=== PATIENT | male | born 1940 | race Caucasian/White ===

== ENCOUNTER 2017-12-12 12:24 | Inpatient (IN) | payer MEDICARE, BC ==
[~2017-12-12] VITALS: Ht 188 cm; Wt 94.3 kg
--- NOTE | 2017-12-12 13:04 | NUR ---
Patient is eating lunch tray with good appetite, pending x-ray & psych crisis adoption social worker's evaluation at this time.
[2017-12-12] MEDS ORDERED: BENA20TA9 PO (13:15)
[2017-12-12] MEDS ORDERED: ACET-73 PO (13:15)
[2017-12-12] MEDS ORDERED: LEVO75TA7 PO (13:15)
[2017-12-12] MEDS ORDERED: CARB-93 PO (13:15)
[2017-12-12] MEDS ORDERED: BUSP5TAB3 PO (13:15)
[2017-12-12] MEDS ORDERED: AMLO5TAB2 PO (13:15)
[2017-12-12] MEDS ORDERED: CHOL200078 PO (13:21)
[2017-12-12] MEDS ORDERED: QUET25TA PO (13:21)
[2017-12-12] MEDS ORDERED: MIRA25TA PO (13:21)
[2017-12-12] MEDS ORDERED: SOLI5TAB2 PO (13:21)
[2017-12-12] MEDS ORDERED: METO25TA6 PO (13:21)
[2017-12-12] MEDS ORDERED: MICONAZOLE 2% TP (13:21)
[2017-12-12] MEDS ORDERED: [UNRECOGNIZED DRUG - CODE] PO (13:21)
--- NOTE | 2017-12-12 13:44 | NUR ---
Patient is medically cleared by Dr Low. No acute change in condition seen- calm, confuse, follows command with simple commands, non-combative at the moment.
[2017-12-12 15:00] VITALS: BP 125/71
[2017-12-12] MEDS ORDERED: MAGNESIUM HYDROXIDE 30 ML LIQUID UDC PO PRN (15:00)
[2017-12-12] MEDS ORDERED: MAG HYDROX/AL HYDROX/SIMETH 30 ML LIQUID UDC PO PRN (15:00)
[2017-12-12] MEDS ORDERED: LORAZEPAM 1 MG TABLET PO PRN (15:00)
--- NOTE | 2017-12-12 15:00 | NUR ---
Arrived to unit at this time via wheelchair and ER nurse, Alert and oriented to self only, unsteady gait noted, no combative actions noted at this time, vitals as follows: 125/71, 98.3 oral temperature, 78 pulse, 18 respirations, 97% oxygen saturation, no complaints of pain, no signs of distress noted, takes and swallows pills whole per orders
[2017-12-12] MEDS: CARBIDOPA/LEVODOPA 10-100MG TABLET PO SCH (17:46)
[2017-12-12] MEDS: OXYBUTYNIN CHLORIDE 5 MG TABLET PO SCH (17:46)
[2017-12-12 20:23] VITALS: BP 92/59
[2017-12-12] MEDS: METOPROLOL TARTRATE 25 MG TABLET PO SCH (20:32)
[2017-12-12] MEDS ORDERED: MICONAZOLE NITRATE CREAM 15 GM TUBE TOP SCH (21:00)
[2017-12-13] MEDS: LEVOTHYROXINE SODIUM 75 MCG TABLET PO SCH (07:18)
--- NOTE | 2017-12-13 07:24 | NUR ---
GPS/NSG PATIENT FIRST OBSERVED ALERT, ORIENTED ONLY TO NAME AT TIMES, POOR APPEARANCE, DISHEVELED UNKEMPT. PATIENT DISPLAYS DISORGANIZED THOUGHT PROCESS UNABLE TO FORMULATE PLAN FOR SELF CARE, UNABLE TO AMBULATE, SEVERE WEAKNESS OBSERVED LOWER EXTREMITIES REQUIRES MAX ASSIST. HS MEDICATION HELD LOW B/P, FLUIDS ENCOURAGED, WILL CONTINUE TO MONITOR, SHOWER GIVEN THIS AM. PATIENT SLEPT A TOTAL OF FOUR HOURS AND FORTY-FIVE MINUTES. LAST OBSERVED AWAKE IN HALLWAY.
[2017-12-13 07:30] VITALS: BP 159/80
[2017-12-13] MEDS: OXYBUTYNIN CHLORIDE 5 MG TABLET PO SCH ×2 (08:25→16:05)
[2017-12-13] MEDS: ACETAMINOPHEN 325 MG TABLET PO PRN ×2 (08:25→16:05)
[2017-12-13] MEDS: CHOLECALCIFEROL 1,000 UNIT TABLET PO SCH (08:25)
[2017-12-13] MEDS: CARBIDOPA/LEVODOPA 10-100MG TABLET PO SCH ×3 (08:26→16:45)
[2017-12-13] MEDS: METOPROLOL TARTRATE 25 MG TABLET PO SCH ×2 (08:26→20:44)
[2017-12-13] MEDS: BENAZEPRIL HCL 10 MG TABLET PO SCH (08:26)
[2017-12-13] MEDS: AMLODIPINE 5 MG TABLET PO SCH (08:27)
[2017-12-13] MEDS ORDERED: Medication Not On Formulary EA (Cholecalciferol (Vitamin D3) (Vitamin D3) 1,000 UNIT) PO SCH (09:00)
[2017-12-13] MEDS ORDERED: SOLIFENACIN SUCCINATE 5 MG TABEC PO SCH (09:00)
[2017-12-13] MEDS ORDERED: BENAZEPRIL HCL 20 MG TABLET PO SCH (09:00)
[2017-12-13 09:04] LABS: BASOPHILS # (AUTO) 0.1 K/uL (0.0-8.0); BASOPHILS % (AUTO) 1.1 % (0.0-2.0); EOSINOPHILS # (AUTO) 0.2 K/uL (0.0-0.7); EOSINOPHILS % (AUTO) 1.6 % (0.0-7.0); HEMATOCRIT 43.8 % (36.7-47.1); HEMOGLOBIN 15.2 g/dL (12.5-16.3); LYMPHOCYTES # (AUTO) 0.9 K/uL (20.0-40.0); LYMPHOCYTES % (AUTO) 8.2 % (20.5-51.5); MEAN CORPUSCULAR HEMOGLOBIN 32.2 uug (23.8-33.4); MEAN CORPUSCULAR HGB CONC 35 g/dL (32.5-36.3); MEAN CORPUSCULAR VOLUME 92.8 fL (73.0-96.2); MONOCYTES # (AUTO) 0.8 K/uL (2.0-10.0); MONOCYTES % (AUTO) 7.4 % (0.0-11.0); NEUTROPHILS # (AUTO) 9.1 K/uL (1.8-8.9); NEUTROPHILS % (AUTO) 81.7 % (38.5-71.5); PLATELET COUNT (AUTO) 227 K/uL (152-348); RED BLOOD CELL COUNT(AUTO) 4.72 MIL/uL (4.06-5.63); WHITE BLOOD COUNT (AUTO) 11.1 K/uL (3.6-10.2)
[2017-12-13 09:20] LABS: CARBON DIOXIDE 26 mmol/L (21-32); CHLORIDE 105 mmol/L (98-107); CHOLESTEROL 163 mg/dL (<200); CREATININE 1.9 mg/dL (0.6-1.3); GLUCOSE 184 mg/dL (74-106); HDL CHOLESTEROL 45 mg/dL (40-60); POTASSIUM 3.2 mmol/L (3.5-5.1); TRIGLYCERIDES 107 MG/DL (30-150); UREA NITROGEN, BLOOD 34 mg/dL (7-18)
[2017-12-13] MEDS: DIVALPROEX 250 MG TABLET.DR PO SCH ×2 (12:34→16:05)
[2017-12-13] MEDS: HALOPERIDOL 1 MG TABLET PO SCH ×2 (12:34→16:05)
[2017-12-13 15:21] VITALS: BP 115/63
--- NOTE | 2017-12-13 16:01 | NUR ---
Firearms Report: LIZETT completed and submitted [employer]arms Report on 12/13/17 for 5150 DTO and GD certification.
[2017-12-13] MEDS: HYDROXYZINE PAMOATE 25 MG CAPSULE PO PRN (16:45)
[2017-12-13 19:30] VITALS: BP 107/64
[2017-12-13] MEDS: RIVASTIGMINE TARTRATE 1.5 MG CAPSULE PO SCH (20:44)
[2017-12-14] MEDS: HYDROXYZINE PAMOATE 25 MG CAPSULE PO PRN ×3 (00:20→20:33)
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
[2017-12-14] MEDS: LEVOTHYROXINE SODIUM 75 MCG TABLET PO SCH (06:47)
[2017-12-14 07:30] VITALS: BP 168/78
[2017-12-14] MEDS: DIVALPROEX 250 MG TABLET.DR PO SCH ×3 (08:15→16:20)
[2017-12-14] MEDS: OXYBUTYNIN CHLORIDE 5 MG TABLET PO SCH ×2 (08:16→16:21)
[2017-12-14] MEDS: ACETAMINOPHEN 325 MG TABLET PO PRN (08:16)
[2017-12-14] MEDS: CHOLECALCIFEROL 1,000 UNIT TABLET PO SCH (08:16)
[2017-12-14] MEDS: HALOPERIDOL 1 MG TABLET PO SCH ×3 (08:16→16:20)
[2017-12-14] MEDS: CARBIDOPA/LEVODOPA 10-100MG TABLET PO SCH ×3 (08:16→16:21)
[2017-12-14] MEDS: RIVASTIGMINE TARTRATE 1.5 MG CAPSULE PO SCH ×2 (08:16→20:30)
[2017-12-14] MEDS: METOPROLOL TARTRATE 25 MG TABLET PO SCH ×2 (08:17→20:31)
[2017-12-14] MEDS: AMLODIPINE 5 MG TABLET PO SCH (08:17)
[2017-12-14] MEDS: BENAZEPRIL HCL 10 MG TABLET PO SCH (08:21)
--- NOTE | 2017-12-14 11:35 | NUR ---
Initial Discharge Instructions: Patient is currently living in a private B&C [[address], [place] [address]; [phone]]. Spoke with patient's DPOA/Friend, Deepali ([phone]) who reports that the facility will take the patient back if his behaviors can be more manageable. SW will continue to collaborate with pt, family, and MD regarding appropriate discharge plans for this patient. SW will form a safe and proper discharge plan.
[2017-12-14 13:00] VITALS: BP 114/61
--- NOTE | 2017-12-14 13:30 | NUR ---
DR MENDIETA SEEN PATIENT THIS AFTERNOON AND PUT ON 14 DAY HOLD
[2017-12-14 15:04] VITALS: BP 125/61
--- NOTE | 2017-12-14 17:30 | NUR ---
MOST OF THE TIME HE SIT IN ADELE CHAIR AND COOPERATE QUIET NO AGITATION ,NO ACUTE DISTRESS ,PAIN UNDER CONTROL NO S/I SAFETY MEASURE PROVIDED AND CLOSED OBSERVATION SITTER 1:1 AT BEDSIDE
--- NOTE | 2017-12-14 18:55 | NUR ---
GPS: Nursing Notes: Thought Disorder: Patient is awake and responding to name, confused, disoriented, disorganized, impaired judgment, poor insight, gets easily irritable when assisting him with ADL's, fall risk, continue with 1:1 sitter for safety, unable to formulate a plan for self care, resistant with nursing care by pushing staff away, continue with treatment plan.
--- NOTE | 2017-12-14 19:30 | NUR ---
RECEIVED PATIENT IN THE DAY ROOM SITTING IN A ADELE CHAIR. HE CONTINUE ON 1:1 SUPERVISION FOR FALL PRECAUTIONS. HE IS NOTED A/O X 1 CONFUSED, DISORIENTED. IMPAIRED INSIGHT AND JUDGMENT NOTED. COMPLIANT WITH MEDICATION REGIMENT. SAFETY WAS EMPHASIS. WILL CONTINUE TO MONITOR.
[2017-12-14 20:00] VITALS: BP 128/75
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
--- NOTE | 2017-12-14 21:30 | NUR ---
PATIENT NOTED SLEEPING COMFORTABLE IN HIS ROOM. CONTINUE ON 1:1 SUPERVISION FOR SAFETY.
[2017-12-15] MEDS: LEVOTHYROXINE SODIUM 75 MCG TABLET PO SCH (06:46)
[2017-12-15] MEDS: HYDROXYZINE PAMOATE 25 MG CAPSULE PO PRN ×4 (07:04→23:25)
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
--- NOTE | 2017-12-15 07:25 | NUR ---
RECEIVED REPORT FROM INDUSTRIAL SPRAY PAINTER. PATIENT ON GERICHAIR, W/ 1:1 SITTER. A AND O X 1 NO DISTRESS NOTED. PER INDUSTRIAL SPRAY PAINTER RN PATIENT OFTEN AGGRESSIVE AND COMBATIVE, UNPREDICTABLE. COMPLIANT WITH MEDS, CRUSHED WITH APPLESAUCE. SAFETY PRECS OBSERVED AT ALL TIMES. WILL CONTINUE TO MONITOR CLOSELY.
[2017-12-15 07:30] VITALS: BP 166/82
[2017-12-15] MEDS: AMLODIPINE 5 MG TABLET PO SCH ×2 (08:20→21:00)
[2017-12-15] MEDS: DIVALPROEX 250 MG TABLET.DR PO SCH ×3 (08:21→16:07)
[2017-12-15] MEDS: CHOLECALCIFEROL 1,000 UNIT TABLET PO SCH (08:21)
[2017-12-15] MEDS: BENAZEPRIL HCL 10 MG TABLET PO SCH (08:21)
[2017-12-15] MEDS: METOPROLOL TARTRATE 25 MG TABLET PO SCH ×2 (08:48→21:00)
[2017-12-15] MEDS: OXYBUTYNIN CHLORIDE 5 MG TABLET PO SCH ×2 (08:48→16:07)
[2017-12-15] MEDS: RIVASTIGMINE TARTRATE 1.5 MG CAPSULE PO SCH ×2 (08:48→21:28)
[2017-12-15] MEDS: CARBIDOPA/LEVODOPA 10-100MG TABLET PO SCH ×3 (08:49→16:21)
[2017-12-15] MEDS: HALOPERIDOL 1 MG TABLET PO SCH ×3 (08:49→16:07)
[2017-12-15 09:50] LABS: BASOPHILS # (AUTO) 0.1 K/uL (0.0-8.0); BASOPHILS % (AUTO) 0.6 % (0.0-2.0); EOSINOPHILS # (AUTO) 0.4 K/uL (0.0-0.7); HEMATOCRIT 42.6 % (36.7-47.1); HEMOGLOBIN 14.6 g/dL (12.5-16.3); LYMPHOCYTES % (AUTO) 9.1 % (20.5-51.5); MEAN CORPUSCULAR HEMOGLOBIN 31.8 uug (23.8-33.4); MEAN CORPUSCULAR HGB CONC 34 g/dL (32.5-36.3); MEAN CORPUSCULAR VOLUME 92.6 fL (73.0-96.2); MONOCYTES % (AUTO) 8.9 % (0.0-11.0); NEUTROPHILS # (AUTO) 8.5 K/uL (1.8-8.9); NEUTROPHILS % (AUTO) 77.4 % (38.5-71.5); PLATELET COUNT (AUTO) 244 K/uL (152-348)
[2017-12-15 10:04] LABS: ALANINE AMINOTRANSFERASE 29 U/L (16-63); ALKALINE PHOSPHATASE 109 U/L (50-136); ASPARTATE AMINOTRANSFERASE 11 U/L (15-37); BILIRUBIN,TOTAL 0.6 mg/dL (0.2-1.0); CARBON DIOXIDE 27 mmol/L (21-32); CHLORIDE 105 mmol/L (98-107); CREATININE 1.1 mg/dL (0.6-1.3); GLUCOSE 117 mg/dL (74-106); MAGNESIUM 2.2 mg/dL (1.8-2.4); PHOSPHOROUS 2.5 mg/dL (2.5-4.9); POTASSIUM 3.7 mmol/L (3.5-5.1); TOTAL PROTEIN, SERUM 7.2 g/dL (6.4-8.2); UREA NITROGEN, BLOOD 28 mg/dL (7-18)
[2017-12-15 10:13] LABS: THYROID STIMULATING HORMONE 2.723 mIU/mL (0.358-3.740)
[2017-12-15 15:56] VITALS: BP 163/78
[2017-12-15 20:17] VITALS: BP 113/62
--- NOTE | 2017-12-16 07:05 | NUR ---
Pt SLEPT VERY POORLY THROUGHOUT THE NIGHT EVEN AFTER ANTI-ANXIETY PO PRN BEING ADMINISTERED. Pt ASLEEP THIS MORNING, UNABLE TO ADMINISTER 0700 MED. WILL ENDORSE TO DAY SHIFT NURSE.
[2017-12-16 07:30] VITALS: BP 128/62
[2017-12-16 08:44] LABS: *BLOOD, URINE NEGATIVE (NEGATIVE); *CLARITY,URINE SLIGHTLY CLOUDY (CLEAR); *COLOR,URINE YELLOW (YELLOW); *KETONES,URINE 1+ (NEGATIVE); *PROTEIN,URINE 2+ (NEGATIVE); *UROBILINOGEN,URINE 0.2 E.U./dl (NORMAL); LEUKOCYTE ESTERASE ,URINE NEGATIVE (NEGATIVE); NITRITE, URINE NEGATIVE (NEGATIVE); PH,URINE 6.5 (5.0-8.0); UGLUCOSE NEGATIVE (NEGATIVE)
[2017-12-16 08:46] LABS: *BILIRUBIN,URIN 1+ (NEGATIVE)
[2017-12-16] MEDS: LEVOTHYROXINE SODIUM 75 MCG TABLET PO SCH (08:52)
[2017-12-16] MEDS: HALOPERIDOL 2 MG TABLET PO SCH ×3 (08:53→17:12)
[2017-12-16] MEDS: DIVALPROEX 250 MG TABLET.DR PO SCH ×3 (08:53→17:12)
[2017-12-16] MEDS: AMLODIPINE 5 MG TABLET PO SCH ×2 (08:53→20:34)
[2017-12-16] MEDS: RIVASTIGMINE TARTRATE 1.5 MG CAPSULE PO SCH ×2 (08:53→20:32)
[2017-12-16] MEDS: CLONAZEPAM 0.5 MG TABLET PO SCH ×3 (08:54→17:12)
[2017-12-16] MEDS: CHOLECALCIFEROL 1,000 UNIT TABLET PO SCH (08:54)
[2017-12-16] MEDS: BENAZEPRIL HCL 10 MG TABLET PO SCH (08:54)
[2017-12-16] MEDS: OXYBUTYNIN CHLORIDE 5 MG TABLET PO SCH ×2 (08:54→17:12)
[2017-12-16] MEDS: METOPROLOL TARTRATE 25 MG TABLET PO SCH ×2 (08:55→20:33)
[2017-12-16 09:18] LABS: BACTERIA,URINE FEW /HPF (NONE SEEN); SQUAMOUS EPITHELIAL CELL,UR FEW /HPF (NONE SEEN); WBC,URINE 0-3 /HPF (0-3)
[2017-12-16] MEDS: CARBIDOPA/LEVODOPA 10-100MG TABLET PO SCH ×3 (09:24→17:48)
--- NOTE | 2017-12-16 11:39 | NUR ---
Gps/Roller Skate Assembler- Remains on 1:1 Nursing supervision for safety , confused, disoriented safety reviewed continue to emphasized.
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
[2017-12-16 16:00] VITALS: BP 118/49
[2017-12-16 20:16] VITALS: BP 128/49
--- NOTE | 2017-12-16 21:06 | NUR ---
Patient has received all scheduled medications at this time and is sleeping comfortably in bed. 1:1 sitter at bedside for safety. Patient transferring to 2nd floor room #227. Report given to JEN Christopher for continuity of care.
[2017-12-16 21:41] VITALS: BP 137/62
--- NOTE | 2017-12-17 00:52 | NUR ---
Received pt to MS floor for as a GPS overflow. All belongings accounted for. 1:1 sitter at bedside for safety.
[2017-12-17 05:37] VITALS: BP 135/72
[2017-12-17] MEDS: LEVOTHYROXINE SODIUM 75 MCG TABLET PO SCH (06:10)
--- NOTE | 2017-12-17 07:30 | NUR ---
Received pt sleeping in bed with no immediate s/s of SOB, pain, distress or discomfort. Pt is GPS overflow, 1:1 sitter for safety. No IV access.
[2017-12-17 07:39] VITALS: BP 155/68
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
[2017-12-17] MEDS: HALOPERIDOL 2 MG TABLET PO SCH ×3 (08:59→16:34)
[2017-12-17] MEDS: RIVASTIGMINE TARTRATE 1.5 MG CAPSULE PO SCH ×2 (08:59→21:50)
[2017-12-17] MEDS: METOPROLOL TARTRATE 25 MG TABLET PO SCH ×2 (09:00→21:50)
[2017-12-17] MEDS: AMLODIPINE 5 MG TABLET PO SCH ×2 (09:00→21:49)
[2017-12-17] MEDS: DIVALPROEX 250 MG TABLET.DR PO SCH ×3 (09:01→16:27)
[2017-12-17] MEDS: CLONAZEPAM 0.5 MG TABLET PO SCH ×3 (09:01→16:27)
[2017-12-17] MEDS: CHOLECALCIFEROL 1,000 UNIT TABLET PO SCH (09:01)
[2017-12-17] MEDS: CARBIDOPA/LEVODOPA 10-100MG TABLET PO SCH ×3 (09:02→16:27)
[2017-12-17] MEDS: BENAZEPRIL HCL 10 MG TABLET PO SCH ×2 (09:02→21:49)
[2017-12-17] MEDS: OXYBUTYNIN CHLORIDE 5 MG TABLET PO SCH ×2 (09:02→16:27)
--- NOTE | 2017-12-17 09:17 | NUR ---
Held metoprolol for HR less than 60, HR was 58. Pt was compliant with morning medications
[2017-12-17] MEDS: DOCUSATE SODIUM 100 MG CAPSULE PO SCH ×2 (12:15→21:50)
[2017-12-17 15:31] VITALS: BP 124/73
--- NOTE | 2017-12-18 03:18 | NUR ---
Received resident on gerichair, awake, follow commands. All meds given well tolerated, and still under observation for behaviour . resident afebrile and denied having pain at this time, All nursing interventions well tolerated, call light within reach.
[2017-12-18 05:15] VITALS: BP 125/59
[2017-12-18] MEDS: LEVOTHYROXINE SODIUM 75 MCG TABLET PO SCH (07:00)
--- NOTE | 2017-12-18 08:15 | NUR ---
Patient confused, non compliant but non combative behavior, spit out medication (prepared crushed meds w/apple sauce)
[2017-12-18] MEDS: RIVASTIGMINE TARTRATE 1.5 MG CAPSULE PO SCH ×3 (08:26→21:30)
[2017-12-18] MEDS: OXYBUTYNIN CHLORIDE 5 MG TABLET PO SCH ×2 (08:26→16:24)
[2017-12-18] MEDS: DIVALPROEX 250 MG TABLET.DR PO SCH ×3 (08:26→16:24)
[2017-12-18] MEDS: CARBIDOPA/LEVODOPA 10-100MG TABLET PO SCH ×3 (08:26→16:24)
[2017-12-18] MEDS: CHOLECALCIFEROL 1,000 UNIT TABLET PO SCH (08:26)
[2017-12-18] MEDS: DOCUSATE SODIUM 100 MG CAPSULE PO SCH ×3 (08:26→21:30)
[2017-12-18] MEDS: AMLODIPINE 5 MG TABLET PO SCH ×3 (08:27→21:30)
[2017-12-18] MEDS: BENAZEPRIL HCL 10 MG TABLET PO SCH ×2 (08:28→20:40)
[2017-12-18] MEDS: CLONAZEPAM 0.5 MG TABLET PO SCH ×3 (08:32→16:24)
[2017-12-18] MEDS: HALOPERIDOL 2 MG TABLET PO SCH ×3 (08:33→16:27)
[2017-12-18] MEDS: METOPROLOL TARTRATE 25 MG TABLET PO SCH ×3 (09:00→21:30)
--- NOTE | 2017-12-18 09:58 | NUR ---
NON ADMIN METOPROLOL DUE TO PULSE 55 bpm
[2017-12-18] MEDS ORDERED: BISACODYL 10 MG SUPP.RECT RC ONE (11:00)
[2017-12-18 12:00] VITALS: BP 163/49
[2017-12-18 12:41] LABS: BASOPHILS % (AUTO) 0.4 % (0.0-2.0); EOSINOPHILS # (AUTO) 0.2 K/uL (0.0-0.7); EOSINOPHILS % (AUTO) 2.1 % (0.0-7.0); HEMATOCRIT 43.1 % (36.7-47.1); HEMOGLOBIN 14.6 g/dL (12.5-16.3); LYMPHOCYTES # (AUTO) 1.2 K/uL (20.0-40.0); LYMPHOCYTES % (AUTO) 11.9 % (20.5-51.5); MEAN CORPUSCULAR HEMOGLOBIN 31.4 uug (23.8-33.4); MEAN CORPUSCULAR HGB CONC 34 g/dL (32.5-36.3); MEAN CORPUSCULAR VOLUME 93.1 fL (73.0-96.2); MONOCYTES # (AUTO) 1.4 K/uL (2.0-10.0); MONOCYTES % (AUTO) 13.6 % (0.0-11.0); NEUTROPHILS # (AUTO) 7.2 K/uL (1.8-8.9); PLATELET COUNT (AUTO) 221 K/uL (152-348); RED BLOOD CELL COUNT(AUTO) 4.63 MIL/uL (4.06-5.63)
[2017-12-18 12:46] LABS: ALANINE AMINOTRANSFERASE 30 U/L (16-63); ALKALINE PHOSPHATASE 106 U/L (50-136); ASPARTATE AMINOTRANSFERASE 20 U/L (15-37); BILIRUBIN,TOTAL 0.9 mg/dL (0.2-1.0); CARBON DIOXIDE 27 mmol/L (21-32); CHLORIDE 106 mmol/L (98-107); GLUCOSE 99 mg/dL (74-106); PHOSPHOROUS 2.8 mg/dL (2.5-4.9); TOTAL PROTEIN, SERUM 6.9 g/dL (6.4-8.2); UREA NITROGEN, BLOOD 22 mg/dL (7-18)
[2017-12-18 13:01] LABS: EOSINOPHILS % (MANUAL) 3 % (0-8); LYMPHOCYTES % (MANUAL) 10 % (20-40); MONOCYTES % (MANUAL) 12 % (2-10); NEUTROPHILS % (MANUAL) 75 % (42-75)
[2017-12-18] MEDS: hydrALAZINE HCL 25 MG TABLET PO PRN (16:24)
[2017-12-18 16:36] VITALS: BP 178/83
--- NOTE | 2017-12-18 18:00 | NUR ---
Patient resting in bed, refused to eat as of this time. Patient has no behavioral issues throughout the shift, talks/mumbles to himself. Patient is not combative, cooperates with patient care. Safety measures in place, 1:1 sitter provided.
[2017-12-18] MEDS: MAGNESIUM HYDROXIDE 30 ML LIQUID UDC PO ONE ×2 (18:06→18:08)
--- NOTE | 2017-12-18 18:08 | NUR ---
NON ADMIN MILK OF MAGNESIA DUE TO PATIENT BOWEL MOVEMENT LOOSE STOOL.
--- NOTE | 2017-12-18 20:00 | NUR ---
RECEIVED PATIENT DOZING ON AND OFF IN BED WITH SITTER AT BEDSIDE. PATIENT IS ALERT TO SELF ONLY. NO S/S OF ANY BEHAVIORAL EPISODES. BP 156/69. TRENDING DOWN. ALL OTHER VS WNL. NO S/S OF ANY PAIN OR DISCOMFORT OR DISCOMFORT. NO RESP. DISTRESS NOTED. PROVIDED SAFE AND THERAPEUTIC ENVIRONMENT. BED ALARM ON. ALL NEEDS ATTENDED. WILL CONTINUE TO MONITOR AND ASSESS.
[2017-12-18 20:36] VITALS: BP 156/69
--- NOTE | 2017-12-18 22:00 | NUR ---
PATIENT REFUSING TO TAKE PO MEDS. DR. MENDIETA AT BEDSIDE TO ASSESS PATIENT. AWARE THAT PATIENT HAS BEEN REFUSING HIS MEDS.
--- NOTE | 2017-12-19 00:42 | NUR ---
PATIENT TRANSFERRED DOWN TO MENTAL HEALTH UNIT PER NURSING EDGE STITCHER. REPORT GIVEN TO RN. ALL NEEDS ATTENDED.
--- NOTE | 2017-12-19 02:36 | NUR ---
RECEIVED PATIENT FROM SECOND FLOOR ON A 14DAY HOLD FOR GD.ON THE UNIT HE HAS 1;1 SITTER FOR SAFETY AND WAS SLEEPING. REPORT INDICATES REFUSAL OF MEDS,AGITATION AND FEELING WEAK,NOTED WITH BRUISE AROUND PERIORBITAL RT,EYE.V/S ARE STABLE AND NO INDICATION OF PAIN OR DISCOMFORT AT THIS TIME,WILL CONTINUE TO MONITOR CLOSELY.
[2017-12-19] MEDS: LEVOTHYROXINE SODIUM 75 MCG TABLET PO SCH (07:00)
[2017-12-19 07:30] VITALS: BP 151/59
--- NOTE | 2017-12-19 07:43 | NUR ---
SLEPT FOR 6'30..SLIGHT REDNESS NOTED ON BUTTOCKS.SLEEPING AND MORNING MEDS WAS NOT GIVEN WILL CONTINUE TO MONITOR
[2017-12-19] MEDS: OXYBUTYNIN CHLORIDE 5 MG TABLET PO SCH ×2 (09:00→17:00)
[2017-12-19] MEDS: AMLODIPINE 5 MG TABLET PO SCH ×2 (09:00→21:29)
[2017-12-19] MEDS: CHOLECALCIFEROL 1,000 UNIT TABLET PO SCH (09:00)
[2017-12-19] MEDS: DOCUSATE SODIUM 100 MG CAPSULE PO SCH ×2 (09:00→21:20)
[2017-12-19] MEDS: METOPROLOL TARTRATE 25 MG TABLET PO SCH ×2 (09:00→21:21)
[2017-12-19] MEDS: RIVASTIGMINE TARTRATE 1.5 MG CAPSULE PO SCH ×2 (09:00→21:20)
[2017-12-19] MEDS: CLONAZEPAM 0.5 MG TABLET PO SCH ×3 (09:00→17:00)
[2017-12-19] MEDS: CARBIDOPA/LEVODOPA 10-100MG TABLET PO SCH ×3 (09:00→17:00)
[2017-12-19] MEDS: BENAZEPRIL HCL 10 MG TABLET PO SCH ×2 (09:00→21:22)
[2017-12-19] MEDS: HALOPERIDOL 2 MG TABLET PO SCH ×3 (09:00→17:00)
[2017-12-19] MEDS: DIVALPROEX 250 MG TABLET.DR PO SCH ×3 (09:00→17:00)
[2017-12-19] MEDS ORDERED: MAGNESIUM HYDROXIDE 30 ML LIQUID UDC PO ONE (11:00)
[2017-12-19] MEDS ORDERED: BISACODYL 10 MG SUPP.RECT RC ONE (11:00)
--- NOTE | 2017-12-19 11:11 | NUR ---
PATIENT NOTED RESTING IN BED, 1 TO 1 SITTER NOTED AT BED SIDE, NO FACIAL CUES OF PAIN, NO SIGNS OF DISTRESS, NO BEHAVIORS NOTED, CONFUSION NOTED, NO AM MEDICATIONS GIVEN DUE TO PATIENT REFUSAL TO OPEN MOUTH, ALL NEEDS MET AT THIS TIME
[2017-12-19] MEDS ORDERED: CLONIDINE-TTS 1 PATCH TD SCH (15:00)
[2017-12-19 15:30] VITALS: BP 182/59
[2017-12-19] MEDS ORDERED: DIVALPROEX 250 MG TABLET.DR PO SCH (17:00)
--- NOTE | 2017-12-19 18:09 | NUR ---
patient refused all meds and food this shift, evening blood pressure noted at 182/59, MD Campoverde notified with orders for TD clonidine patch 1, patch applied
[2017-12-19 20:41] VITALS: BP 142/91
[2017-12-19] MEDS ORDERED: TRAZODONE 100 MG TABLET PO SCH (21:00)
[2017-12-20] MEDS: LEVOTHYROXINE SODIUM 75 MCG TABLET PO SCH (07:21)
--- NOTE | 2017-12-20 07:28 | NUR ---
GPS/NSG PATIENT SLEPT A TOTAL OF 5.30 HOURS, NO DISTRESS NOTED THROUGH OUT THE NIGHT. PATIENT CONTINUES ON A 1:1 SITTER FOR SAFETY. LAST OBSERVED AWAKE IN ROOM.
[2017-12-20 07:30] VITALS: BP 142/82
[2017-12-20] MEDS: CARBIDOPA/LEVODOPA 10-100MG TABLET PO SCH ×5 (08:01→18:00)
[2017-12-20] MEDS: CHOLECALCIFEROL 1,000 UNIT TABLET PO SCH (08:02)
[2017-12-20] MEDS: CLONAZEPAM 0.5 MG TABLET PO SCH ×5 (08:02→18:00)
[2017-12-20] MEDS: RIVASTIGMINE TARTRATE 1.5 MG CAPSULE PO SCH ×3 (08:02→20:34)
[2017-12-20] MEDS: OXYBUTYNIN CHLORIDE 5 MG TABLET PO SCH ×4 (08:02→17:34)
[2017-12-20] MEDS: HALOPERIDOL 2 MG TABLET PO SCH ×5 (08:02→18:00)
[2017-12-20] MEDS: METOPROLOL TARTRATE 25 MG TABLET PO SCH ×3 (08:04→20:35)
[2017-12-20] MEDS: BENAZEPRIL HCL 10 MG TABLET PO SCH ×3 (08:04→21:59)
[2017-12-20] MEDS: AMLODIPINE 5 MG TABLET PO SCH ×3 (08:04→20:36)
[2017-12-20] MEDS: DIVALPROEX SPRINKLE 125 MG CAP.SPRINK PO SCH ×4 (09:00→18:00)
[2017-12-20] MEDS: DOCUSATE SODIUM 100 MG CAPSULE PO SCH ×2 (09:00→20:34)
[2017-12-20] MEDS ORDERED: FLEET ENEMA 133 ML BOTTLE RC ONE (10:15)
--- NOTE | 2017-12-20 14:09 | NUR ---
GPS/RN- unable to safely administer Fleet Enema, patient uncooperative, confused and disorganized, resistive with care due to poor insight, judgement impaired. Giulia Amador NP. informed of patient behavior, received orders and read back for Lactulose 20G one time dose.
[2017-12-20] MEDS: LACTULOSE 20 G/30 ML LIQUID UDC PO ONE ×2 (14:15→16:00)
[2017-12-20 15:56] VITALS: BP 162/94
--- NOTE | 2017-12-20 16:39 | NUR ---
GPS/RN -PATIENT ABLE TO DRINK SOME OF THE LACTULOSE BUT THREW SOME ON THE FLOOR, ANXIOUS RESTLESS. POOR INSIGHT JUDGEMENT IMPAIRED.
--- NOTE | 2017-12-20 18:46 | NUR ---
GPS/RN- Patient provided with Milk of Magnesia for constipation, refused all other meds.
[2017-12-20 19:30] VITALS: BP 173/77
[2017-12-20] MEDS: VALPROIC ACID 250 MG/5 ML LIQUID UDC PO SCH (20:38)
[2017-12-20] MEDS: Z GUARD REMEDY PASTE 57 GM TUBE TOP SCH (20:47)
--- NOTE | 2017-12-20 22:00 | NUR ---
received to care, up in ambrose chair, 1;1 sitter at side, for safety. compliant with medications and staff direction. no aggression noted. as of 2200, he appears to be asleep. no distress noted. will continue to monitor closely.
--- NOTE | 2017-12-21 06:00 | NUR ---
slept 6.75 hours.
[2017-12-21] MEDS: LEVOTHYROXINE SODIUM 75 MCG TABLET PO SCH (06:23)
[2017-12-21] MEDS: CHOLECALCIFEROL 1,000 UNIT TABLET PO SCH (10:00)
[2017-12-21] MEDS: CARBIDOPA/LEVODOPA 10-100MG TABLET PO SCH ×3 (10:00→17:00)
[2017-12-21] MEDS: METOPROLOL TARTRATE 25 MG TABLET PO SCH ×2 (10:00→21:33)
[2017-12-21] MEDS: OXYBUTYNIN CHLORIDE 5 MG TABLET PO SCH ×2 (10:00→17:00)
[2017-12-21] MEDS: BENAZEPRIL HCL 10 MG TABLET PO SCH ×2 (10:00→21:33)
[2017-12-21] MEDS: AMLODIPINE 5 MG TABLET PO SCH ×2 (10:00→22:28)
[2017-12-21] MEDS: CLONAZEPAM 0.5 MG TABLET PO SCH ×3 (10:00→17:00)
[2017-12-21] MEDS: HALOPERIDOL 2 MG TABLET PO SCH ×3 (10:00→17:00)
[2017-12-21] MEDS: VALPROIC ACID 250 MG/5 ML LIQUID UDC PO SCH ×2 (10:00→21:34)
[2017-12-21] MEDS: RIVASTIGMINE TARTRATE 1.5 MG CAPSULE PO SCH ×2 (10:00→21:33)
[2017-12-21] MEDS: DOCUSATE SODIUM 100 MG CAPSULE PO SCH ×2 (10:00→21:34)
[2017-12-21 10:14] VITALS: BP 113/53
[2017-12-21] MEDS: Z GUARD REMEDY PASTE 57 GM TUBE TOP SCH ×2 (10:18→22:28)
[2017-12-21 15:19] VITALS: BP 151/78
--- NOTE | 2017-12-21 18:47 | NUR ---
GPS/RN- DR MENDIETA NOTIFIED OF PATIENTS POOR INTAKE AND MEDS HELD , LETHARGIC .
[2017-12-21 19:30] VITALS: BP 171/93
[2017-12-22] MEDS: hydrALAZINE HCL 25 MG TABLET PO PRN (00:10)
--- NOTE | 2017-12-22 00:12 | NUR ---
PRN hydralazine given for b/p 182/79. sitter remains with patient, for safety. pt remains calm. remains resistive to po intake, but did take 120 ml of ensure, 50 ml of water, and half of a pudding. will continue to monitor closely.
--- NOTE | 2017-12-22 01:38 | NUR ---
b/p is now 143/70, hr 72. continues to sleep. no distress noted.
[2017-12-22 01:39] VITALS: BP 143/70
[2017-12-22] MEDS: LEVOTHYROXINE SODIUM 75 MCG TABLET PO SCH (06:52)
[2017-12-22 07:30] VITALS: BP 141/69
[2017-12-22] MEDS: Z GUARD REMEDY PASTE 57 GM TUBE TOP SCH ×2 (08:44→21:59)
[2017-12-22] MEDS: HALOPERIDOL 2 MG TABLET PO SCH ×3 (08:57→17:42)
[2017-12-22] MEDS: CLONAZEPAM 0.5 MG TABLET PO SCH ×3 (08:57→17:42)
[2017-12-22] MEDS: OXYBUTYNIN CHLORIDE 5 MG TABLET PO SCH ×2 (08:57→17:42)
[2017-12-22] MEDS: DOCUSATE SODIUM 100 MG CAPSULE PO SCH ×2 (08:57→21:55)
[2017-12-22] MEDS: VALPROIC ACID 250 MG/5 ML LIQUID UDC PO SCH ×2 (08:57→21:55)
[2017-12-22] MEDS: RIVASTIGMINE TARTRATE 1.5 MG CAPSULE PO SCH ×2 (08:57→21:55)
[2017-12-22] MEDS: BENAZEPRIL HCL 10 MG TABLET PO SCH ×2 (08:58→21:58)
[2017-12-22] MEDS: METOPROLOL TARTRATE 25 MG TABLET PO SCH ×2 (08:58→21:58)
[2017-12-22] MEDS: AMLODIPINE 5 MG TABLET PO SCH ×3 (08:58→21:59)
[2017-12-22] MEDS: CHOLECALCIFEROL 1,000 UNIT TABLET PO SCH (08:59)
[2017-12-22] MEDS: CARBIDOPA/LEVODOPA 10-100MG TABLET PO SCH ×3 (08:59→17:42)
[2017-12-22 15:00] VITALS: BP 144/71
[2017-12-22 19:49] VITALS: BP 151/78
--- NOTE | 2017-12-23 06:00 | NUR ---
slept 5.0 hours.
[2017-12-23] MEDS: LEVOTHYROXINE SODIUM 75 MCG TABLET PO SCH (06:25)
[2017-12-23 08:04] VITALS: BP 108/59
[2017-12-23] MEDS: CARBIDOPA/LEVODOPA 10-100MG TABLET PO SCH ×3 (08:42→16:54)
[2017-12-23] MEDS: CHOLECALCIFEROL 1,000 UNIT TABLET PO SCH (09:00)
[2017-12-23] MEDS: BENAZEPRIL HCL 10 MG TABLET PO SCH ×2 (09:00→20:24)
[2017-12-23] MEDS: AMLODIPINE 5 MG TABLET PO SCH ×2 (09:00→20:24)
[2017-12-23] MEDS: METOPROLOL TARTRATE 25 MG TABLET PO SCH ×2 (09:00→20:25)
[2017-12-23] MEDS: DOCUSATE SODIUM 100 MG CAPSULE PO SCH ×2 (09:00→20:24)
[2017-12-23] MEDS: VALPROIC ACID 250 MG/5 ML LIQUID UDC PO SCH ×2 (09:37→20:25)
[2017-12-23] MEDS: RIVASTIGMINE TARTRATE 1.5 MG CAPSULE PO SCH ×2 (09:38→20:24)
[2017-12-23] MEDS: Z GUARD REMEDY PASTE 57 GM TUBE TOP SCH ×2 (09:38→20:25)
[2017-12-23] MEDS: HALOPERIDOL 2 MG TABLET PO SCH ×3 (09:38→16:53)
[2017-12-23] MEDS: OXYBUTYNIN CHLORIDE 5 MG TABLET PO SCH ×2 (09:39→16:54)
[2017-12-23] MEDS: CLONAZEPAM 0.5 MG TABLET PO SCH ×3 (09:40→16:54)
[2017-12-23 16:51] VITALS: BP 174/84
[2017-12-23] MEDS: hydrALAZINE HCL 25 MG TABLET PO PRN (16:53)
--- NOTE | 2017-12-23 18:19 | NUR ---
Gps/Drama Director- Remains on 1:1 Nursing supervision for safety, speech confused/incoherent, routine meds. crushed adeministered with apple sauce. Fluids offered and encouraged, sitter was well instructed. Ancelmo CORN SHELLER was in to see patient informed of elevated b/p .
[2017-12-23 22:27] VITALS: BP 115/72
[2017-12-24] MEDS: LEVOTHYROXINE SODIUM 75 MCG TABLET PO SCH (06:27)
[2017-12-24] MEDS: CLONAZEPAM 0.5 MG TABLET PO SCH ×2 (09:18→14:07)
[2017-12-24] MEDS: METOPROLOL TARTRATE 25 MG TABLET PO SCH (09:19)
[2017-12-24] MEDS: CHOLECALCIFEROL 1,000 UNIT TABLET PO SCH (09:20)
[2017-12-24] MEDS: AMLODIPINE 5 MG TABLET PO SCH (09:20)
[2017-12-24] MEDS: RIVASTIGMINE TARTRATE 1.5 MG CAPSULE PO SCH (09:20)
[2017-12-24] MEDS: CARBIDOPA/LEVODOPA 10-100MG TABLET PO SCH ×2 (09:20→14:07)
[2017-12-24] MEDS: BENAZEPRIL HCL 10 MG TABLET PO SCH (09:20)
[2017-12-24] MEDS: DOCUSATE SODIUM 100 MG CAPSULE PO SCH (09:21)
[2017-12-24] MEDS: VALPROIC ACID 250 MG/5 ML LIQUID UDC PO SCH (09:21)
[2017-12-24] MEDS: OXYBUTYNIN CHLORIDE 5 MG TABLET PO SCH (09:21)
[2017-12-24] MEDS: Z GUARD REMEDY PASTE 57 GM TUBE TOP SCH (09:21)
[2017-12-24] MEDS: HALOPERIDOL 2 MG TABLET PO SCH ×2 (09:42→14:07)
--- NOTE | 2017-12-24 10:33 | NUR ---
Discharge Note: Patient will be discharged to [facility] [[address] [place] [address]; [phone]] via ambulance. Spoke with Rosa and Dorothea at the facility who state they are ready to accept the patient today, and the patient will be in room 21B. Spoke with patients AI Deepali (home: [phone]; cell: [phone]) who is aware and agreeable with discharge plans. Patient is alert and oriented x1-2 and is cooperative. Patient will follow-up at the facility with Dr. Streeter (Hydrocrane Operator) and Dr. Schafer (Psychiatrist).
[2017-12-24 15:14] VITALS: BP 117/66
--- NOTE | 2017-12-24 15:30 | NUR ---
Gps/Airline Counter Agent- Report was given to Orlando Guerra , [facility])
== END 2017-12-24 15:30 | DRG 885 ==
LOC: ER 12:24 → GPS 14:38 → GPSOV 12-16 21:04 → GPS 12-19 00:05
PROVIDERS: ADMIT Psychiatry & Neurology Psychiatry; ATTEND Nurse Practitioner Acute Care
DX: F39 Unspecified mood [affective] disorder (principal); F02.81 Dementia in other diseases classified elsewhere, unspecified severity, with behavioral disturbance; N17.9 Acute kidney failure, unspecified; G93.40 Encephalopathy, unspecified; F03.91 Unspecified dementia, unspecified severity, with behavioral disturbance; J98.11 Atelectasis; E03.9 Hypothyroidism, unspecified; Z85.46 Personal history of malignant neoplasm of prostate; E87.6 Hypokalemia; G20 Parkinson's disease; S00.11XA Contusion of right eyelid and periocular area, initial encounter; X58.XXXA Exposure to other specified factors, initial encounter; Y92.099 Unspecified place in other non-institutional residence as the place of occurrence of the external cause; I11.9 Hypertensive heart disease without heart failure; G47.30 Sleep apnea, unspecified; R73.9 Hyperglycemia, unspecified; Z86.59 Personal history of other mental and behavioral disorders; K59.00 Constipation, unspecified
CPT/HCPCS: 36415; 70450; 71045; 80164; 83735; 84100; 84443; 85025; 87086; 93005; 97110; 97112; 97116; 97530; A4663; C1758; J3490